=== PATIENT | male | born 1990 | race American Indian/Alaskan Native ===

== ENCOUNTER 2016-05-28 18:29 | Emergency (ER) | payer SELFPAY ==
--- NOTE | 2016-05-28 23:52 | Emergency Department Report ---
HPI - General Chief Complaint: Chest Pain Time Seen by Provider: 05/28/16 23:01 - HPI HPI: 25-year-old male presents today complaining of an episode of difficulty breathing at 1200 hrs. today. Past history of similar symptoms and has been worked up. His workup was negative. The patient was given Ventolin HFA and reported symptomatic relief post medication, but states he was out of his medication today. Denies any chest pain or difficulty breathing at this time. Patient states he would like his medication to be refilled. Denies fever, chills, nausea, vomiting, abdominal pain. ED Past Medical Hx - Past Medical History Previous Medical History?: No - Surgical History Past Surgical History?: No - Social History Smoking Status: Never Smoker Substance Use Type: Alcohol - Medications Home Medications: Home Medications Medication Instructions Recorded Confirmed Last Taken Type Albuterol (Nf) [Proventil TAB] 4 mg PO Q8H #1 tablet 01/23/13 Unknown Rx Amoxicillin [Trimox CAP] 1,000 mg PO BID #40 capsule 01/23/13 Unknown Rx Prednisone 40 mg PO QDAY #10 tablet 01/23/13 Unknown Rx Albuterol Sulfate [Ventolin HFA] 2 puff IH Q4H PRN #1 [email or web address] 05/28/16 Unknown Rx ED Review of Systems ROS: Stated complaint: SOB/CHEST PAIN Other details as noted in HPI Constitutional: denies: chills, fever, malaise Eyes: denies: eye pain ENT: denies: ear pain, throat pain, congestion Respiratory: denies: cough, shortness of breath, wheezing Cardiovascular: denies: chest pain, palpitations Endocrine: no symptoms reported Gastrointestinal: denies: abdominal pain, nausea, vomiting Skin: denies: rash Neurological: denies: headache, weakness Physical Exam - Physical Exam Vital Signs: Vital Signs 05/28/16 18:41 Temperature 97.8 F Pulse Rate 60 Respiratory 18 Rate Blood Pressure 117/73 O2 Sat by Pulse 97 Oximetry Physical Exam: GENERAL: The patient is well-developed and well-nourished. Patient is in NAD. HEAD: Normocephalic. Atraumatic. CHEST/LUNGS: Clear to auscultation throughout. HEART/CARDIOVASCULAR: Regular rate and rhythm. No murmurs, rubs or gallops. ABDOMEN: Abdomen is soft, nontender. Bowel sounds normoactive. No guarding or rebound tenderness. EXTREMITIES: Peripheral pulses intact. Capillary refill less than 2 seconds. NEURO: Alert and oriented x 3. Normal gait. ED Course Vital Signs 05/28/16 18:41 Temperature 97.8 F Pulse Rate 60 Respiratory 18 Rate Blood Pressure 117/73 O2 Sat by Pulse 97 Oximetry ED Medical Decision Making - Lab Data Vital Signs 05/28/16 18:41 Temperature 97.8 F Pulse Rate 60 Respiratory 18 Rate Blood Pressure 117/73 O2 Sat by Pulse 97 Oximetry - Medical Decision Making 25-year-old male presents with a post one episode of difficulty in breathing. Denies any symptoms at this time. Patient is in no acute distress at this time. He will be discharged home and is encouraged to follow up with a primary care provider. He will be sent home on Ventolin HFA and is encouraged to return to the emergency room for any worsening symptoms. Critical care attestation.: If time is entered above; I have spent that time in minutes in the direct care of this critically ill patient, excluding procedure time. ED Disposition Clinical Impression: Medication refill Disposition: DISCHARGED TO HOME OR SELFCARE Is pt being admited?: No Does the pt Need Aspirin: No Condition: Stable Instructions: Albuterol (By breathing) Additional Instructions: Follow-up with primary care provider. Return to the emergency department if symptoms worsen. Prescriptions: Albuterol Sulfate [Ventolin HFA] 2 puff IH Q4H PRN #1 [email or web address] PRN Reason: Shortness Of Breath Referrals: TONIE FELIZ MD [Primary Care Provider] - 3-5 Days [facility] [Outside] - 3-5 Days Forms: Work/School Release Form(ED), Accompanied Note Time of Disposition: 23:51
[2016-05-29 03:32] VITALS: BP 132/77
== END 2016-05-28 23:55 | disposition home or self-care (01) ==
LOC: ED 18:29
DX: R06.09 Other forms of dyspnea (principal)
CPT/HCPCS: 93005; 93010; 99282